=== PATIENT | female | born 1960 | race Caucasian/White ===

== ENCOUNTER 2017-12-12 06:33 | Observation (INO) | payer MEDICARE, OTHER ==
[~2017-12-12] VITALS: Ht 162.6 cm; Wt 68.0 kg
[2017-12-12 06:38] VITALS: BP 133/76; PULSE 84; RESP 16; TEMP 98.6; O2SAT 98
[2017-12-12 06:41] VITALS: O2SAT 100
[2017-12-12] MEDS ORDERED: SERO50TA PO (06:47)
[2017-12-12] MEDS ORDERED: XANA1TAB2 PO (06:47)
[2017-12-12] MEDS ORDERED: LEXA5TAB PO (06:47)
[2017-12-12] MEDS ORDERED: DIAZ10 PO (06:47)
--- NOTE | 2017-12-12 06:54 | RADRPT ---
EXAM DATE: 12/12/2017 6:47 AM EDT AGE/SEX: 57 years / Female INDICATIONS: Chest tightness, difficulty breathing for 3 days CLINICAL DATA: This is the patient's initial encounter. Patient reports that signs and symptoms have been present for 1 day and indicates a pain score of 5/10. MEDICAL/SURGICAL HISTORY: None. None. COMPARISON: No prior exams available for comparison. FINDINGS: A single AP view of the chest demonstrates the lungs to be symmetrically aerated without evidence of mass, infiltrate or effusion. The cardiomediastinal contours are unremarkable. Osseous structures a re intact. CONCLUSION: No active disease. Electronically signed by: Wero Friedman MD 12/12/2017 6:53 AM EDT
[2017-12-12 07:03] LABS: BASOPHIL % 0.7 % (0.0-2.0); EOSINOPHIL # 0.1 TH/MM3 (0-0.4); EOSINOPHIL % 0.7 % (0.0-4.0); HEMATOCRIT 38.9 % (35.0-46.0); HEMOGLOBIN 13.2 GM/DL (11.6-15.3); LYMPH % 25.6 % (9.0-44.0); LYMPHOCYTE # 1.9 TH/MM3 (1.0-4.8); MEAN CELL VOLUME 91.2 FL (80.0-100.0); MEAN CORPUSCULAR HEMOGLOBIN 30.9 PG (27.0-34.0); MEAN CORPUSCULAR HGB CONC 33.9 % (32.0-36.0); MEAN PLATELET VOLUME 7.7 FL (7.0-11.0); MONO % 6.4 % (0.0-8.0); MONOCYTE # 0.5 TH/MM3 (0-0.9); NEUT % 66.6 % (16.0-70.0); PLATELET COUNT 284 TH/MM3 (150-450); RED BLOOD COUNT 4.26 MIL/MM3 (4.00-5.30); RED CELL DISTRIBUTION WIDTH 14.3 % (11.6-17.2); WHITE BLOOD COUNT 7.5 TH/MM3 (4.0-11.0)
[2017-12-12 07:10] LABS: INTERNATIONAL NORMALIZED RATIO 1.1 RATIO; PROTHROMBIN TIME - PATIENT 10.7 SEC (9.8-11.6)
[2017-12-12 07:17] LABS: BICARBONATE 24.4 MEQ/L (21.0-32.0); BLOOD UREA NITROGEN 3 MG/DL (7-18); CHLORIDE 103 MEQ/L (98-107); CREATININE 0.82 MG/DL (0.50-1.00); GLOMERULAR FILTRATION RATE 72 ML/MIN (>89); GLUCOSE,RANDOM 97 MG/DL (74-106); SODIUM (NA) 137 MEQ/L (136-145)
[2017-12-12 07:20] LABS: TROPONIN I LESS THAN 0.02 NG/ML (0.02-0.05)
--- NOTE | 2017-12-12 07:53 | PD ---
HPI Chief Complaint: Chest Pain Time Seen by Provider: 07:18 Travel History International Travel<30 days: No Contact w/Intl Traveler<30days: No Traveled to known affect area: No History of Present Illness HPI Patient comes in with weeklong onset of chest discomfort, that feels like a pinching sensation on her chest is nonradiating, is not alleviated or aggravated by anything. Patient denies any associated factors such as fever, shortness of breath, rash, headache, back pain, abdominal pain, flank pain,. However the patient does articulate that she has had increased frequency and urgency with a couple of days of hematuria which according to her her symptoms consistent with her having a UTI usually. Patient is currently chest pain- free. Patient states per history she has had to stress test with IV dye of some sort and both of them have been negative. pcp dr retana States allergy to aspirin Past medical history significant for cigarette use anxiety and cholecystectomy. PFSH Past Medical History Anxiety: Yes Tetanus Vaccination: Unknown Influenza Vaccination: No ?: Not Past Surgical History Cholecystectomy: Yes Social History Alcohol Use: No Tobacco Use: Yes Substance Use: No Allergies-Medications (Allergen,Severity, Reaction): Coded Allergies: aspirin (Verified Allergy, Unknown, 12/12/17) Reported Meds & Prescriptions Reported Meds & Active Scripts Active Reported Lexapro (Escitalopram Oxalate) 5 Mg Tab Unknown Dose PO DAILY Valium (Diazepam) 10 Mg Tab 10 Mg PO BID PRN Xanax (Alprazolam) 1 Mg Tab 1 Mg PO QID PRN Seroquel (Quetiapine Fumarate) 50 Mg Tab 50 Mg PO HS Review of Systems General / Constitutional: No: Fever Eyes: No: Visual changes HENT: No: Headaches Cardiovascular: Positive: Chest Pain or Discomfort Respiratory: No: Shortness of Breath Gastrointestinal: No: Abdominal Pain Genitourinary: No: Dysuria Musculoskeletal: No: Pain Skin: No Rash Neurologic: No: Weakness Psychiatric: No: Depression Endocrine: No: Polydipsia Hematologic/Lymphatic: No: Easy Bruising Physical Exam Narrative GENERAL: SKIN: Warm and dry. HEAD: Atraumatic. Normocephalic. EYES: Pupils equal and round. No scleral icterus. No injection or drainage. ENT: No nasal bleeding or discharge. Mucous membranes pink and moist. NECK: Trachea midline. No JVD. CARDIOVASCULAR: Regular rate and rhythm. RESPIRATORY: No accessory muscle use. Clear to auscultation. Breath sounds equal bilaterally. GASTROINTESTINAL: Abdomen soft, non-tender, nondistended. MUSCULOSKELETAL: Extremities without clubbing, cyanosis, or edema. No obvious deformities. NEUROLOGICAL: Awake and alert. No obvious cranial nerve deficits. Motor grossly within normal limits. Five out of 5 muscle strength in the arms and legs. Normal speech. PSYCHIATRIC: Appropriate mood and affect; insight and judgment normal. Data Data Last Documented VS Vital Signs Date Time Temp Pulse Resp B/P (MAP) Pulse Ox O2 Delivery O2 Flow Rate FiO2 12/12/17 06:41 100 Room Air 12/12/17 06:38 98.6 84 16 133/76 (95) Orders Orders Electrocardiogram (12/12/17 06:36) Complete Blood Count With Diff (12/12/17 06:36) Basic Metabolic Panel (Bmp) (12/12/17 06:36) Ckmb (Isoenzyme) Profile (12/12/17 06:36) Troponin I (12/12/17 06:36) Chest, Single Ap (12/12/17 06:36) Iv Access Insert/Monitor (12/12/17 06:36) Ecg Monitoring (12/12/17 06:36) Oxygen Administration (12/12/17 06:36) Oximetry (12/12/17 06:36) Prothrombin Time / Inr (Pt) (12/12/17 06:36) Act Partial Throm Time (Ptt) (12/12/17 06:36) Ct Pulmonary Angiogram (12/12/17 07:45) Urinalysis - C+S If Indicated (12/12/17 07:45) Drug Screen, Random Urine (12/12/17 07:45) Iohexol 350 Inj (Omnipaque 350 Inj) (12/12/17 08:50) Labs Laboratory Tests Test 12/12/17 06:45 12/12/17 08:50 White Blood Count 7.5 TH/MM3 Red Blood Count 4.26 MIL/MM3 Hemoglobin 13.2 GM/DL Hematocrit 38.9 % Mean Corpuscular Volume 91.2 FL Mean Corpuscular Hemoglobin 30.9 PG Mean Corpuscular Hemoglobin Concent 33.9 % Red Cell Distribution Width 14.3 % Platelet Count 284 TH/MM3 Mean Platelet Volume 7.7 FL Neutrophils (%) (Auto) 66.6 % Lymphocytes (%) (Auto) 25.6 % Monocytes (%) (Auto) 6.4 % Eosinophils (%) (Auto) 0.7 % Basophils (%) (Auto) 0.7 % Neutrophils # (Auto) 5.0 TH/MM3 Lymphocytes # (Auto) 1.9 TH/MM3 Monocytes # (Auto) 0.5 TH/MM3 Eosinophils # (Auto) 0.1 TH/MM3 Basophils # (Auto) 0.0 TH/MM3 CBC Comment DIFF FINAL Differential Comment Prothrombin Time 10.7 SEC Prothromb Time International Ratio 1.1 RATIO Activated Partial Thromboplast Time 26.3 SEC Blood Urea Nitrogen 3 MG/DL Creatinine 0.82 MG/DL Random Glucose 97 MG/DL Calcium Level 8.0 MG/DL Sodium Level 137 MEQ/L Potassium Level 3.2 MEQ/L Chloride Level 103 MEQ/L Carbon Dioxide Level 24.4 MEQ/L Anion Gap 10 MEQ/L Estimat Glomerular Filtration Rate 72 ML/MIN Total Creatine Kinase 33 U/L Troponin I LESS THAN 0.02 NG/ML Urine Color COLORLESS Urine Turbidity CLEAR Urine pH 6.5 Urine Specific [place] 1.001 Urine Protein NEG mg/dL Urine Glucose (UA) NEG mg/dL Urine Ketones NEG mg/dL Urine Occult Blood TRACE Urine Nitrite NEG Urine Bilirubin NEG Urine Urobilinogen LESS THAN 2.0 MG/DL Urine Leukocyte Esterase NEG Urine WBC LESS THAN 1 /hpf Urine Squamous Epithelial Cells <1 /hpf Microscopic Urinalysis Comment CULT NOT INDICATED MDM Medical Decision Making Medical Screen Exam Complete: Yes Emergency Medical Condition: Yes Medical Record Reviewed: Yes Interpretation(s) Pulse ox: Excellent Pleth wave, room air oximetry reveals 96-100 which is within normal limits and does not show any evidence of hypoxemia EKG as baseline motion artifact however can still be evaluated as the patient has normal sinus rhythm with 82 bpm and normal intervals. Inverted T waves in V1 through V3 Differential Diagnosis Pneumonia versus pneumothorax versus pulmonary embolus versus MD versus non- STEMI versus anemia Narrative Course CBC shows no leukocytosis, no anemia, normal platelet counts, no left shift Coagulation profile is within normal limits Electrolytes are all within normal limits with the exception of mild hypokalemia of 3.2, normal kidney function, first set of cardiac enzymes negative Chest x-ray read by radiologist as no active disease Chest CT read by radiologist shows no evidence of pulmonary embolism or pericardial effusion. The patient does have small noncalcified pulmonary nodules which actually the patient is aware of. No consolidation or effusion Although the patient stated that she has had 2 stress test I did not see any evidence of that on record review Diagnosis Primary Impression: Atypical chest pain Admitting Information Admitting Physician Requests: Observation Yung Figueroa MD Dec 12, 2017 07:53
[2017-12-12] MEDS ORDERED: IOHEXOL 350 MG/ML 10 ML VIAL (for RAD DIAG) IVCONTRAST ONE (08:50)
[2017-12-12 09:02] LABS: BILIRUBIN, URINE NEG (NEG); BLOOD, URINE TRACE (NEG); GLUCOSE,URINE NEG (NEG); KETONE, URINE NEG (NEG); NITRITE,URINE NEG (NEG); PH, URINE 6.5 (5.0-8.5); SQUAMOUS EPITHELIAL CELL URINE <1 /hpf (0-5); URINE COLOR COLORLESS (YELLW/STRAW); URINE LEUKOCYTE ESTERASE NEG (NEG)
--- NOTE | 2017-12-12 09:06 | RADRPT ---
EXAM DATE: 12/12/2017 8:58 AM EDT AGE/SEX: 57 years / Female INDICATIONS: Chest pain, pinching sensation in chest for one week. CLINICAL DATA: This is the patient's initial encounter. Patient reports that signs and symptoms have been present for 1 week and indicates a pain score of 3/10. MEDICAL/SURGICAL HISTORY: None. Cholecystectomy. RADIATION DOSE: 9.23 CTDI (mGy) COMPARISON: No prior exams available for comparison. TECHNIQUE: Volumetric scanning was performed using a multi-row detector CT scanner during bolus infu ernst of 80 ml Omnipaque 350 (iohexol) nonionic water-soluble contrast as a single exam dose. The tiago a was post processed with a variety of visualization algorithms including full volume maximum intensi ty projection and sliding thin slab reformation. Using automated exposure control and adjustment of the mA and/or kV according to patient size, radiation dose was kept as low as reasonably achievable t o obtain optimal diagnostic quality images. FINDINGS: A few scattered groundglass densities are seen in the right upper lobe, the largest area measuring 1. 3 cm on image 21. There is a noncalcified pleural-based nodule in the right lower lobe abutting the o blique fissure measuring 5.3 mm, and a tiny nodule in the right lower lobe abutting the oblique fissu re measuring 3.2 mm on image 50. There is no consolidation or effusion. No adenopathy. The adrenal gl ands are normal. There is no evidence for pulmonary embolism. Osseous structures are intact. CONCLUSION: 1. No evidence for pulmonary embolism. 2. A few tiny noncalcified pulmonary nodules are present, as well as nonspecific groundglass nodular opacities. Follow-up CT chest in 6 months recommended. 3. No consolidation or effusion. Electronically signed by: Dimitrios Mayer MD 12/12/2017 9:05 AM EDT
[2017-12-12] MEDS ORDERED: ACETAMINOPHEN/HYDROcodone 325 MG/7.5 MG TAB PO PRN (11:00)
[2017-12-12] MEDS ORDERED: ACETAMINOPHEN 500 MG CPLT PO PRN (11:00)
--- NOTE | 2017-12-12 11:09 | HHI.HP ---
HPI Service Chest pain center Primary Care Physician Unknown Chief Complaint Stefany Walsh with [facility] History of Present Illness 57-year-old lady who suffers extensively with panic attacks and anxiety. She has multiple visits both to this emergency room and to [facility] for anxiety and chest pain. She was extensively evaluated in 2013 and again in 2015 including nuclear stress test which were entirely normal. The patient recognizes that most of her problems are related to her anxiety and panic attacks notes that when she gets pain she begins to feel that she could have a heart attack and panics. She defines the current episode is "same old crap". Over the last week she has been experiencing some episodes of shortness of breath and discomfort in her chest that comes and goes and seems largely to be associated with panic attacks. She is followed by Dr. Kenny and is on multiple medication but without good control. She is so fearful that she feels that she "cannot go out of her house". Her current description of pain is very similar to previous episodes with pinching, some sharp pains, some diffuse tightness when she is anxious and a vague sense of difficulty getting a breath. She and both recognize this is probably anxiety and she states that she does not want to have to stay in the emergency room and particularly does not want to spend the night. 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 Reported Medications Reported Meds & Active Scripts Active Reported Lexapro (Escitalopram Oxalate) 5 Mg Tab Unknown Dose PO DAILY Valium (Diazepam) 10 Mg Tab 10 Mg PO BID PRN Xanax (Alprazolam) 1 Mg Tab 1 Mg PO QID PRN Seroquel (Quetiapine Fumarate) 50 Mg Tab 50 Mg PO HS Family History Father of lung cancer Mother is living but with severe dementia Social History She smokes a pack a day possibly more No alcohol No substance abuse Physical Exam Vital Signs Vital Signs Date Time Temp Pulse Resp B/P (MAP) Pulse Ox O2 Delivery O2 Flow Rate FiO2 12/12/17 06:41 100 Room Air 12/12/17 06:38 98.6 84 16 133/76 (95) 98 Physical Exam Very anxious white lady sitting up in bed with at bedside. Frequently tearful. Head normocephalic atraumatic Eyes PERRLA EOMI sclera clear conjunctiva somewhat red and tearful Left cheek shows extensive scarring from recent surgery but healing well Mouth mucous membranes moist and well papillated no lesions Neck supple no JVD masses nodes or bruits Chest clear to auscultation with no rales wheezes or rhonchi Cardiovascular regular sinus rhythm with no gallop rub or murmur Abdomen soft nontender no guarding or rebound (she complains of some recent diarrhea but has no objective findings currently) Extremities no clubbing cyanosis or edema Neurologic is grossly intact but not evaluated in detail due to her extreme anxiety Laboratory Laboratory Tests Test 12/12/17 06:45 12/12/17 08:50 White Blood Count 7.5 Red Blood Count 4.26 Hemoglobin 13.2 Hematocrit 38.9 Mean Corpuscular Volume 91.2 Mean Corpuscular Hemoglobin 30.9 Mean Corpuscular Hemoglobin Concent 33.9 Red Cell Distribution Width 14.3 Platelet Count 284 Mean Platelet Volume 7.7 Neutrophils (%) (Auto) 66.6 Lymphocytes (%) (Auto) 25.6 Monocytes (%) (Auto) 6.4 Eosinophils (%) (Auto) 0.7 Basophils (%) (Auto) 0.7 Neutrophils # (Auto) 5.0 Lymphocytes # (Auto) 1.9 Monocytes # (Auto) 0.5 Eosinophils # (Auto) 0.1 Basophils # (Auto) 0.0 CBC Comment DIFF FINAL Differential Comment Prothrombin Time 10.7 Prothromb Time International Ratio 1.1 Activated Partial Thromboplast Time 26.3 Blood Urea Nitrogen 3 Creatinine 0.82 Random Glucose 97 Calcium Level 8.0 Sodium Level 137 Potassium Level 3.2 Chloride Level 103 Carbon Dioxide Level 24.4 Anion Gap 10 Estimat Glomerular Filtration Rate 72 Total Creatine Kinase 33 Troponin I LESS THAN 0.02 Urine Color COLORLESS Urine Turbidity CLEAR Urine pH 6.5 Urine Specific [place] 1.001 Urine Protein NEG Urine Glucose (UA) NEG Urine Ketones NEG Urine Occult Blood TRACE Urine Nitrite NEG Urine Bilirubin NEG Urine Urobilinogen LESS THAN 2.0 Urine Leukocyte Esterase NEG Urine WBC LESS THAN 1 Urine Squamous Epithelial Cells <1 Microscopic Urinalysis Comment CULT NOT INDICATED Urine Opiates Screen NEG Urine Barbiturates Screen NEG Urine Amphetamines Screen NEG Urine Benzodiazepines Screen POS Urine Cocaine Screen NEG Urine Cannabinoids Screen NEG Result Diagram: 12/12/1745 12/12/17644 Imaging Chest x-ray unremarkable for significant change Course The patient has enough insight to realize that her current symptoms are probably due to anxiety and panic attack. She has had multiple workups in the past and is not desirous of repeating them at this time. She is aware that she needs to stop smoking and tried recently but ended up in the emergency room 4 days after stopping due to shortness of breath and restarted again Her enzymes and EKGs are currently unremarkable however a second set will be obtained prior to allowing her to discharge. No further evaluation is felt appropriate at this time and she will be referred to her primary care physician for ongoing outpatient care. Caprini VTE Risk Assessment Caprini VTE Risk Assessment: No/Low Risk (score <= 1) Caprini Risk Assessment Model Point Value = 1 Point Value = 2 Point Value = 3 Point Value = 5 Age 41-60 Minor surgery BMI > 25 kg/m2 Swollen legs Varicose veins or History of unexplained or recurrent spontaneous Oral contraceptives or hormone replacement Sepsis (< 1 month) Serious lung disease, including pneumonia (< 1 month) Abnormal pulmonary function Acute myocardial infarction Congestive heart failure (< 1 month) History of inflammatory bowel disease Medical patient at bed rest Age 61-74 Arthroscopic surgery Major open surgery (> 45 min) Laparoscopic surgery (> 45 min) Malignancy Confined to bed (> 72 hours) Immobilizing plaster cast Central venous access Age >= 75 History of VTE Family history of VTE Factor V Leiden Prothrombin [id number] Lupus anticoagulant Anticardiolipin antibodies Elevated serum homocysteine Heparin-induced thrombocytopenia Other congenital or acquired thrombophilia Stroke (< 1 month) Elective arthroplasty Hip, pelvis, or leg fracture Acute spinal cord injury (< 1 month) Prophylaxis Regimen Total Risk Factor Score Risk Level Prophylaxis Regimen 0-1 Low Early ambulation 2 Moderate Order ONE of the following: *Sequential Compression Device (SCD) *Heparin 5000 units SQ BID 3-4 Higher Order ONE of the following medications: *Heparin 5000 units SQ TID *Enoxaparin/Lovenox 40 mg SQ daily (WT < 150 kg, CrCl > 30 mL/min) *Enoxaparin/Lovenox 30 mg SQ daily (WT < 150 kg, CrCl > 10-29 mL/min) *Enoxaparin/Lovenox 30 mg SQ BID (WT < 150 kg, CrCl > 30 mL/min) AND/OR *Sequential Compression Device (SCD) 5 or more Highest Order ONE of the following medications: *Heparin 5000 units SQ TID (Preferred with Epidurals) *Enoxaparin/Lovenox 40 mg SQ daily (WT < 150 kg, CrCl > 30 mL/min) *Enoxaparin/Lovenox 30 mg SQ daily (WT < 150 kg, CrCl > 10-29 mL/min) *Enoxaparin/Lovenox 30 mg SQ BID (WT < 150 kg, CrCl > 30 mL/min) AND *Sequential Compression Device (SCD) Assessment and Plan Problem List: (1) Chest pain, atypical ICD Codes: R07.89 - Other chest pain Status: Acute Plan: Rule out for ACS and if negative discharge to follow-up on outpatient basis with primary care physician and psychiatrist (2) Tobacco abuse ICD Codes: Z72.0 - Tobacco use Status: Acute Plan: Encouraged to stop again but this needs to be dealt with with her psychiatrist (3) Lung nodule seen on imaging study ICD Codes: R91.1 - Solitary pulmonary nodule Status: Chronic Plan: Follow-up with primary care physician. She has a left chest mass but this has been evaluated and felt to be benign. She has scheduled for follow-up however (4) Generalized anxiety disorder with panic attacks ICD Codes: F41.1 - Generalized anxiety disorder; F41.0 - Panic disorder [ episodic paroxysmal anxiety] Status: Acute Plan: Continue all outpatient follow-up with Dr. 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
--- NOTE | 2017-12-12 11:17 | HHI.DCPOC ---
Discharge Care Plan Diagnosis: (1) Chest pain, atypical (2) Generalized anxiety disorder with panic attacks (3) Breast mass, left (4) Tobacco abuse (5) Lung nodule seen on imaging study Goals to Promote Your Health Lung nodules were seen on your CT of the chest that was performed in the ED. Radiologist recommended repeat of CT in 6 months. Discuss this with your PCP so this may be scheduled and followed. * To prevent worsening of your condition and complications * To maintain your health at the optimal level Directions to Meet Your Goals Take your medications as prescribed Follow your dietary instruction Follow activity as directed Keep your appointments as scheduled Take your immunizations and boosters as scheduled If your symptoms worsen call your PCP, if no PCP go to Urgent Care Center or Emergency Room Smoking is Dangerous to Your Health. Avoid second hand smoke Call the 24-hour hour crisis hotline for domestic abuse at Son[facility] Dec 12, 2017 11:17
[2017-12-12] MEDS ORDERED: POTASSIUM CHLORIDE 20 MEQ CONTROLLED RELEASE TAB PO ONE (11:30)
[2017-12-12 11:40] VITALS: O2SAT 98
[2017-12-12 12:05] LABS: TROPONIN I LESS THAN 0.02 NG/ML (0.02-0.05)
[2017-12-12 12:32] VITALS: BP 124/71
--- NOTE | 2017-12-12 14:47 | EKG ---
Date Performed: 12/12/2017 Time Performed: 06:39:32 PTAGE: 57 years EKG: Sinus rhythm NORMAL ECG NO PREVIOUS TRACING DOCTOR: Jamarcus Luke Interpretating Date/Time 12/12/2017 14:45:48
--- NOTE | 2017-12-13 13:11 | EKG ---
Date Performed: 12/12/2017 Time Performed: 11:34:11 PTAGE: 57 years EKG: Sinus rhythm NORMAL ECG No significant change PREVIOUS TRACING : 12/12/2017 06.39 DOCTOR: Antwan Slaughter Interpretating Date/Time 12/13/2017 13:09:47
== END 2017-12-12 13:10 | disposition home or self-care (01) ==
LOC: NEPC 06:33 → NEDA 09:30 → UNDOADMOB 09:30 → UNDODISOB 13:10
PROVIDERS: ADMIT Internal Medicine Interventional Cardiology; ATTEND Internal Medicine Interventional Cardiology
DX: R07.89 Other chest pain (principal); R91.1 Solitary pulmonary nodule; R06.02 Shortness of breath; R19.7 Diarrhea, unspecified; R31.9 Hematuria, unspecified; R35.0 Frequency of micturition; R39.15 Urgency of urination; E87.6 Hypokalemia; F41.1 Generalized anxiety disorder; N63.20 Unspecified lump in the left breast, unspecified quadrant; F17.210 Nicotine dependence, cigarettes, uncomplicated; Z79.899 Other long term (current) drug therapy
CPT/HCPCS: 71045; 71275; 80048; 80307; 81001; 82550; 84484; 85025; 85610; 85730; 93005; 99285; G0378; Q9967